=== PATIENT | female | born 1960 | race Caucasian/White ===

== ENCOUNTER 2016-05-09 04:42 | Emergency (ER) | payer SELFPAY ==
--- NOTE | 2016-05-09 07:34 | RAD ---
History: Cough for 10 days. Comparison: 01/26/2015. Technique: 2 views Findings: The soft tissue and bony structures are unremarkable. The heart size is appropriate. No infiltrate, effusion or pneumothorax is observed. The hilar and mediastinal structures are normal. Impression: 1. A negative 2 view chest
== END 2016-05-09 06:00 | disposition home or self-care (01) ==
LOC: ED 04:42
DX: R05 Cough (principal)